=== PATIENT | male | born 2000 | race Hispanic/Latino ===

== ENCOUNTER 2019-10-16 17:42 | Emergency (ER) | payer OTHER ==
[~2019-10-16] VITALS: Ht 165.1 cm; Wt 72.9 kg
[2019-10-16] MEDS ORDERED: TETRACAINE 0.5% OPHTH SOLN 4ML OD ONE (18:15)
[2019-10-16] MEDS ORDERED: FLUORESCEIN OPHTH 1 MG STRIP OD ONE (18:15)
[2019-10-16] MEDS ORDERED: IBUPROFEN 600 MG TAB PO ONE (19:00)
[2019-10-16] MEDS ORDERED: ACUL0.5S OD (19:06)
[2019-10-16 19:14] VITALS: BP 131/69
== END 2019-10-16 19:23 | disposition home or self-care (01) ==
LOC: M ED 17:42
DX: H20.9 Unspecified iridocyclitis (principal); S05.01XA Injury of conjunctiva and corneal abrasion without foreign body, right eye, initial encounter; X58.XXXA Exposure to other specified factors, initial encounter; Y92.89 Other specified places as the place of occurrence of the external cause